=== PATIENT | female | born 1980 | race Caucasian/White ===

== ENCOUNTER 2019-05-24 14:12 | Emergency (ER) | payer BC ==
[2019-05-24 14:25] VITALS: BP 110/64; PULSE 63; TEMP 98; BMI 26.5
--- NOTE | 2019-05-24 14:34 | PDOC ---
History of Present Illness - General Chief Complaint: Foreign Body (FB) Stated Complaint: Q TIP STUCK IN LT EAR Time Seen by Provider: 05/24/19 14:25 History Source: Patient Exam Limitations: No Limitations - History of Present Illness Initial Comments: 05/24/19 14:32 HISTORY OF PRESENT ILLNESS: This a 38-year-old woman presents emergency department for evaluation of possible retained Q-tip in her left ear. Patient was using Q-tips today and she removed the Q-tip from her left ear she noted the cotton have been displaced from its original position. She is unsure of any piece was missing but noted decreased hearing in her ear after the usage. Patient denies any pain, fevers or headaches. No recent travel or sick contacts. PAST MEDICAL HISTORY: Denies past medical history SURGICAL HISTORY: Denies ALLERGIES: No known drug allergies REVIEW OF SYSTEMS General/Constitutional: Denies fever or chills. Denies weakness, weight change. HEENT: see HPI Cardiovascular: Denies chest pain or shortness of breath. Respiratory: Denies cough, wheezing, or hemoptysis. Gastrointestinal: Denies nausea, vomiting, diarrhea or constipation. Denies rectal bleeding. Genitourinary: Denies dysuria, frequency, or change in urination. Musculoskeletal: Denies joint or muscle swelling or pain. Denies neck or back pain. Skin and breasts: Denies rash or easy bruising. Neurologic: Denies headache, vertigo, loss of consciousness, or loss of sensation. Psychiatric: Denies depression or anxiety. Endocrine: Denies increased thirst. Denies abnormal weight change. Hematologic/Lymphatic: Denies anemia, easy bleeding, or history of blood clots. Allergic/Immunologic: Denies hives or skin allergy. Denies latex allergy. PHYSICAL EXAM General Appearance: Well-appearing, appropriately dressed. No apparent distress , no intoxication. HEENT: EOMI, PERRLA, normal ENT inspection, normal voice, pharynx normal. No conjunctival pallor. No photophobia, scleral icterus. Left TM obstructed by cerumen. Right TM is within normal limits with normal appearing external auditory canal. No foreign body visualized. Neck: Supple. Trachea midline. No tenderness, rigidity, carotid bruit, stridor , lymphadenopathy, or thyromegaly. Respiratory/Chest: Lungs CTAB. No shortness of breath, chest tenderness, respiratory distress, accessory muscle use. No crackles, rales, rhonchi, stridor , wheezing, dullness Cardiovascular: RRR. S1, S2. No JVD, murmur, bradycardia, tachycardia. Neurologic: site safety coordinator II-XII intact. Fully oriented, alert. Appropriate mood/affect. Motor strength 5/5. No appreciable EOM palsy, facial droop or sensory deficit. 05/25/19 11:31 Past History - Past Medical History Allergies/Adverse Reactions: Allergies Allergy/AdvReac Type Severity Reaction Status Date / Time codeine [Codeine] Allergy Verified 05/24/19 14:19 Home Medications: Ambulatory Orders NK [No Known Home Medication] 05/24/19 Asthma: Yes COPD: No - Surgical History Abdominal Surgery: Yes (tubal ligation) - Immunization History Immunization Up to Date: Yes - Suicide/Smoking/Psychosocial Hx Smoking Status: No Smoking History: Never smoked Number of Cigarettes Smoked Daily: 0 Information on smoking cessation initiated: Yes Hx Alcohol Use: No Drug/Substance Use Hx: No Substance Use Type: None *Physical Exam - Vital Signs Last Vital Signs Temp Pulse Resp BP Pulse Ox 98 F 63 18 110/64 99 05/24/19 14:16 05/24/19 14:16 05/24/19 14:16 05/24/19 14:16 05/24/19 14:16 Medical Decision Making - Medical Decision Making 05/24/19 14:33 A/P: 38-year-old woman with impacted cerumen in the left ear Instill hydrogen peroxide and flushed with saline Reassess 05/24/19 14:58 Large amount of cerumen removed without difficulty after flushing. Inspection of the TM after cerumen removal reveals pearly palma TM with appropriate light reflex. External auditory canal without signs of infection Discharge home *DC/Admit/Observation/Transfer Diagnosis at time of Disposition: Impacted cerumen of left ear - Discharge Dispostion Disposition: HOME Condition at time of disposition: Stable Decision to Admit order: No - Referrals Referrals: Lanre Weller MD [Primary Care Provider] - - Patient Instructions Additional Instructions: Do not use Q-tips, or any other small objects on the inner aspect of the ear canal - may only use Q-tips only on the outside to clean ears Ear wax may be packed by use of Q-tips to the inner canal and become hardened May use hydrogen peroxide 3 times a week to continued keep ear wax soft and able to expel Rinse in shower after hydrogen peroxide instillation to wash ear wax out [id number] preparations also assist in wax buildup Follow up with private physician or ear nose and throat doctor as needed - Post Discharge Activity
== END 2019-05-24 15:01 | disposition home or self-care (01) ==
LOC: JERFT 14:12
PROC: 3E1B78Z Irrigation of Ear using Irrigating Substance, Via Natural or Artificial Opening (ICD-10-PCS; principal; 2019-05-24)
DX: H61.22 Impacted cerumen, left ear (principal)
CPT/HCPCS: 99281-25

== ENCOUNTER 2023-06-13 05:47 | Emergency (ER) | payer BC ==
[2023-06-13 05:50] VITALS: BP 109/64; PULSE 85; RESP 17; TEMP 97.6; BMI 26.5
[2023-06-13] MEDS ORDERED: SODIUM CHLORIDE 1,000 ML IV STA (07:48)
[2023-06-13] MEDS ORDERED: METHOCARBAMOL 500 MG TABLET PO ONE (08:48)
[2023-06-13] MEDS ORDERED: KETOROLAC TROMETHAMINE 30 MG/1 ML VIAL IM ONE (08:48)
[2023-06-13] MEDS ORDERED: KETOROLAC TROMETHAMINE 30 MG/1 ML VIAL ONE (08:53)
[2023-06-13] MEDS ORDERED: METHOCARBAMOL 500 MG TABLET ONE (08:53)
== END 2023-06-13 11:31 | disposition home or self-care (01) ==
LOC: JERFT 05:47 → JER 05:47 → JERFT 11:31
PROC: 3E0233Z Introduction of Anti-inflammatory into Muscle, Percutaneous Approach (ICD-10-PCS; principal; 2023-06-13)
DX: S76.912A Strain of unspecified muscles, fascia and tendons at thigh level, left thigh, initial encounter (principal); M79.652 Pain in left thigh; X58.XXXA Exposure to other specified factors, initial encounter; Y99.0 Civilian activity done for income or pay
CPT/HCPCS: 73552-TC-LT-FY; 93971-TC; 99284-25